=== PATIENT | male | born 1965 | race Caucasian/White ===

== ENCOUNTER 2020-11-24 08:12 | Inpatient (IN) | payer BC ==
[~2020-11-24] VITALS: Ht 175.3 cm; Wt 113.9 kg
[2020-11-24 09:43] VITALS: BP 126/84
[2020-11-24] MEDS ORDERED: CHLORHEXIDINE 15 ML UDC ONE (09:48)
[2020-11-24] MEDS ORDERED: LACTATED RINGERS 1,000 ML IV SCH (10:00)
[2020-11-24] MEDS ORDERED: CHLORHEXIDINE 15 ML UDC PO ONE (10:00)
[2020-11-24] MEDS ORDERED: CRAN200C2 PO (10:04)
[2020-11-24] MEDS ORDERED: ATOR40TA78 PO (10:04)
[2020-11-24] MEDS ORDERED: VIT1TABL32 PO (10:04)
[2020-11-24] MEDS ORDERED: ASPI81TA45 PO (10:04)
[2020-11-24] MEDS ORDERED: ALLO100T30 PO (10:04)
[2020-11-24] MEDS ORDERED: LISI-170 PO (10:04)
[2020-11-24] MEDS ORDERED: MIDAZOLAM 1 MG/ML, 2ML ONE (11:05)
[2020-11-24] MEDS ORDERED: FENTANYL PF 250 MCG/5ML ONE (11:10)
[2020-11-24] MEDS ORDERED: CEFAZOLIN 1,000 MG ONE (11:22)
[2020-11-24] MEDS ORDERED: PROPOFOL 10 MG/ML, 20ML ONE (11:22)
[2020-11-24] MEDS ORDERED: SUCCINYLCHOLINE 20 MG/ML, 10ML ONE (11:22)
[2020-11-24] MEDS ORDERED: ROCURONIUM 10MG/ML,5ML ONE (11:22)
[2020-11-24] MEDS ORDERED: ONDANSETRON 2MG/ML, 2ML ONE (12:02)
[2020-11-24 12:52] LABS: 10MIN %DROP IOPTH 92 %; 5MIN %DROP IOPTH 89 %; IOPTH BASELINE 208 pg/mL; SAMPLE 5 %DROP IOPTH 92 %; SAMPLE 6 %DROP IOPTH 93 %
[2020-11-24] MEDS ORDERED: hydrALAzine 20 MG/ML, 1ML IV PRN (13:00)
[2020-11-24] MEDS ORDERED: ONDANSETRON 2MG/ML, 2ML IVPush PRN (13:00)
[2020-11-24] MEDS ORDERED: PROMETHAZINE 12.5 MG SUPP PR PRN (13:00)
[2020-11-24] MEDS ORDERED: DIPHENHYDRAMINE 50 MG/ML, 1ML IVPush PRN ×2 (13:00)
[2020-11-24] MEDS ORDERED: MEPERIDINE/PF 25MG/0.5ML IVPush PRN (13:00)
[2020-11-24] MEDS ORDERED: EPHEDRINE 50 MG/ML, 1ML IVPush PRN (13:00)
[2020-11-24] MEDS ORDERED: ACETAMINOPHEN 325 MG TABLET PO PRN (13:00)
[2020-11-24] MEDS ORDERED: DIAZEPAM 5 MG/ML, 2ML IVPush PRN (13:00)
[2020-11-24] MEDS ORDERED: MIDAZOLAM 1 MG/ML, 2ML IV PRN (13:00)
[2020-11-24] MEDS ORDERED: FENTANYL PF 100 MCG/2ML IV PRN (13:00)
[2020-11-24] MEDS ORDERED: LABETALOL 5MG/ML, 20ML IV PRN (13:00)
[2020-11-24] MEDS ORDERED: ALBUTEROL SULFATE 2.5 MG/3 ML NPPB PRN (13:00)
[2020-11-24] MEDS ORDERED: PROMETHAZINE 25 MG/ML, 1ML IVPush PRN (13:00)
[2020-11-24] MEDS ORDERED: OXYcodone 5 MG/5 ML ORAL.SOL UDC PO PRN (13:00)
[2020-11-24] MEDS ORDERED: HYDROmorphone 1 MG/ML, 1ML INJ IVPush PRN (13:00)
[2020-11-24 13:30] VITALS: BP 118/80
[2020-11-24] MEDS ORDERED: HYDROcodone/APAP 5/325 TABLET PO PRN (14:00)
[2020-11-24] MEDS ORDERED: morphine SULFATE 10 MG/ML, 1ML IV PRN (14:00)
[2020-11-24] MEDS ORDERED: ONDANSETRON 2MG/ML, 2ML IV PRN (14:00)
[2020-11-24 18:30] LABS: ALBUMIN 3.1 g/dL (3.4-5.0); CALCIUM 9.4 mg/dL (8.5-10.1)
[2020-11-24 19:16] VITALS: BP 127/86
[2020-11-24] MEDS: LACTATED RINGERS 1,000 ML IV SCH (19:40)
[2020-11-24] MEDS ORDERED: MULTIVITAMINS/MINERALS TABLET PO SCH (21:00)
[2020-11-24] MEDS ORDERED: ATORVASTATIN 40 MG TABLET PO SCH (21:00)
[2020-11-24] MEDS ORDERED: ALLOPURINOL 300 MG TABLET PO SCH (21:00)
[2020-11-24] MEDS ORDERED: ASPIRIN 81 MG TABLET EC PO SCH (21:00)
[2020-11-24] MEDS ORDERED: LISINOPRIL 20 MG TABLET PO SCH (21:00)
[2020-11-24] MEDS: OXYMETAZOLINE NASAL SPRAY 0.05%, 15ML NAS SCH (21:10)
[2020-11-24 23:40] VITALS: BP 100/56
[2020-11-25 00:39] LABS: ALBUMIN 3.3 g/dL (3.4-5.0); CALCIUM 8.9 mg/dL (8.5-10.1)
[2020-11-25 02:49] VITALS: BP 108/69
[2020-11-25] MEDS ORDERED: ASPIRIN 81 MG TABLET EC PO SCH (06:00)
[2020-11-25 06:09] LABS: ALBUMIN 3.6 g/dL (3.4-5.0); CALCIUM 8.8 mg/dL (8.5-10.1)
[2020-11-25] MEDS: LACTATED RINGERS 1,000 ML IV SCH (06:15)
[2020-11-25] MEDS: OXYMETAZOLINE NASAL SPRAY 0.05%, 15ML NAS SCH (06:15)
[2020-11-25 07:40] VITALS: BP 95/61
[2020-11-25] MEDS ORDERED: HYDR-2214 PO (08:13)
[2020-11-25] MEDS ORDERED: MULTIVITAMINS/MINERALS TABLET PO SCH (09:00)
[2020-11-25] MEDS ORDERED: ALLOPURINOL 300 MG TABLET PO SCH (09:00)
[2020-11-25] MEDS ORDERED: LISINOPRIL 20 MG TABLET PO SCH (09:00)
== END 2020-11-25 09:40 | disposition home or self-care (01) | DRG 627 ==
LOC: OUT 08:12 → 4NE 13:30 → OUT 13:36 → DCLOUNGE 11-25 09:31
PROVIDERS: ADMIT Surgery; ATTEND Surgery
PROC: 0GBM0ZZ Excision of Left Superior Parathyroid Gland, Open Approach (ICD-10-PCS; 2020-11-24)
PROC: 0GBM0ZZ Excision of Left Superior Parathyroid Gland, Open Approach (ICD-10-PCS; principal; 2020-11-24 11:30)
DX: E21.0 Primary hyperparathyroidism (principal); Z20.822 Contact with and (suspected) exposure to COVID-19
CPT/HCPCS: 36415; 82040; 82310; 83970; 87635; 88305; 88331; G0378; J0690; J2250; J2405; J2704; J3010; C1760; J0330; J7120